=== PATIENT | male | born 1965 | race Caucasian/White ===

== ENCOUNTER 2017-04-21 14:30 | Emergency (ER) | payer SELFPAY ==
[2017-04-21 14:39] VITALS: BP 125/84
[2017-04-21] MEDS ORDERED: HYDROmorphone 1 MG/ML Syringe IVPUSH ONE (15:25)
[2017-04-21] MEDS ORDERED: Sodium Chloride 0.9% 10 ML Syringe FLUSH PRN (15:25)
--- NOTE | 2017-04-21 16:29 | EDM.PDOC ---
ED HPI GENERAL MEDICAL PROBLEM - General Chief Complaint: Lower Extremity Injury/Pain Stated Complaint: LOWER LEFT GROIN PAIN Time Seen by Provider: 04/21/17 15:28 Source of Information: Reports: Patient History Limitations: Reports: No Limitations - History of Present Illness INITIAL COMMENTS - FREE TEXT/NARRATIVE: 51-year-old male presents for evaluation and treatment of left-sided groin pain. Patient reports that he has a left inguinal hernia present for at least the last year. He was supposed to have surgery in [place] but ended up not having this performed. He reports he is now experiencing severe pain from the left inguinal hernia. Worse over the last 4-5 days. Denies any redness or swelling to the area. Reports he is having excruciating pain with reducing the hernia. States that he is difficulty going to the bathroom due to the pain. Left Groin Pain Score (Numeric/FACES): 9 - Related Data Allergies Allergy/AdvReac Type Severity Reaction Status Date / Time No Known Allergies Allergy Verified 04/21/17 14:36 Home Meds: Home Meds Acetaminophen/HYDROcodone [Kersey 325-5 MG] 1 tab PO Q6H PRN #12 tablet 04/21/17 [Rx] Past Medical History Genitourinary History: Reports: Other (See Below) Other Genitourinary History: groin hernia Social & Family History - Tobacco Use Smoking Status *Q: Current Every Day Smoker Years of Tobacco use: 30 Packs/Tins Daily: 0.3 Used Tobacco, but Quit: No Second Hand Smoke Exposure: No - Caffeine Use Caffeine Use: Reports: None - Recreational Drug Use Recreational Drug Use: No Review of Systems - Review of Systems Review Of Systems: See Below GI/Abdominal: Reports: Other (pain with defication due to hernia ) Genitourinary: Reports: Other (left groin pain) Skin: Denies: Erythema ED EXAM, GENERAL - Physical Exam Exam: See Below Exam Limited By: No Limitations General Appearance: Alert, WD/WN, Moderate Distress Respiratory/Chest: No Respiratory Distress (Male) Exam: Hernia (soft, tender left inguinal hernia; no overlying erythema or swelling) Neurological: Alert, Oriented, Normal Cognition Psychiatric: Normal Affect, Normal Mood Skin Exam: Warm, Dry, Normal Color Course - Vital Signs Last Recorded V/S: Last Vital Signs Temp 37.6 C 04/21/17 14:36 Pulse 85 04/21/17 14:36 Resp 20 04/21/17 14:36 BP 125/84 04/21/17 14:36 Pulse Ox 97 04/21/17 14:36 - Orders/Labs/Meds Orders: Active Orders 24 hr Category Date Time Status Peripheral IV Care [RC] . DIRECTED Care 04/21/17 15:25 Active Peripheral IV Insertion Adult [OM.PC] Routine Oth 04/21/17 15:25 Ordered Labs: Laboratory Tests 04/21/17 04/21/17 Range/Units 15:30 15:30 WBC 6.02 (4.23-9.07) K/mm3 RBC 4.68 (4.63-6.08) M/mm3 Hgb 14.5 (13.7-17.5) gm/L Hct 40.8 (40.1-51.0) % MCV 87.2 (79.0-92.2) fl MCH 31.0 (25.7-32.2) pg MCHC 35.5 (32.2-35.5) g/dl RDW Std Deviation 38.5 (35.1-43.9) fL Plt Count 94 L (163-337) K/mm3 MPV 11.5 (9.4-12.3) fl Neut % (Auto) 81.8 H (34.0-67.9) % Lymph % (Auto) 11.3 L (21.8-53.1) % Dane % (Auto) 6.3 (5.3-12.2) % Eos % (Auto) 0 L (0.8-7.0) Baso % (Auto) 0.3 (0.1-1.2) % Neut # (Auto) 4.92 (1.78-5.38) K/mm3 Lymph # (Auto) 0.68 L (1.32-3.57) K/mm3 Dane # (Auto) 0.38 (0.30-0.82) K/mm3 Eos # (Auto) 0.00 L (0.04-0.54) K/mm3 Baso # (Auto) 0.02 (0.01-0.08) K/mm3 Manual Slide Review Abnormal smear Sodium 130 L (136-145) mEq/L Potassium 3.9 (3.5-5.1) mEq/L Chloride 97 L (98-107) mEq/L Carbon Dioxide 24 (21-32) mEq/L Anion Gap 12.9 (5-15) BUN 14 (7-18) mg/dL Creatinine 1.3 (0.7-1.3) mg/dL Est Cr Clr Drug Dosing 73.21 mL/min Estimated GFR (MDRD) 59 (>60) mL/min BUN/Creatinine Ratio 10.8 L (14-18) Glucose 143 H (74-106) mg/dL Calcium 7.9 L (8.5-10.1) mg/dL Total Bilirubin 0.4 (0.2-1.0) mg/dL AST 48 H (15-37) U/L ALT 52 (16-63) U/L Alkaline Phosphatase 55 (46-116) U/L Total Protein 6.3 L (6.4-8.2) g/dl Albumin 2.6 L (3.4-5.0) g/dl Globulin 3.7 gm/dL Albumin/Globulin Ratio 0.7 L (1-2) Meds: Medications Discontinued Medications Generic Name Dose Route Start Last Admin Trade Name Freq PRN Reason Stop Dose Admin Hydromorphone HCl 1 mg 04/21/17 15:25 04/21/17 15:39 Dilaudid IVPUSH 04/21/17 15:26 1 mg ONETIME ONE Administration Sodium Chloride 10 ml 04/21/17 15:25 04/21/17 15:40 Saline Flush FLUSH 10 ml ASDIRECTED PRN Administration Keep Vein Open - Re-Assessments/Exams Free Text/Narrative Re-Assessment/Exam: 04/21/17 16:28 When I evaluated the patient I felt we could reduce his hernia but due to the pain I ordered Dilaudid and labs. Does not appear to be incarcerated. Labs include the following: WBC is 6.02, hgb is 14.5 and plts are 94 sodium is 130, potassium is 3.9 and chloride is 97. Anion gap is 12.9. Glucose is 143 When I return to the room to reduce the hernia the patient had already done this. Pain has improved. I spoke with Dr. Jimenez, surgery superintendent distribution. She is moving from the community shortly and recommended Dr. Mcnally or Dr. Lala. She also recommended s scrotal truss in the interm. Rx given for pain mediation as needed. Discharge instructions as documented. Departure - Departure Time of Disposition: 16:30 Disposition: Home, Self-Care 01 Condition: Good Clinical Impression: Inguinal hernia - Discharge Information Prescriptions: Acetaminophen/HYDROcodone [Kersey 325-5 MG] 1 tab PO Q6H PRN #12 tablet PRN Reason: Pain Instructions: Inguinal Hernia, Adult, [id number] Referrals: PCP,None [Primary Care Provider] - Jamel Mcnally MD [Physician] - Forms: ED Department Discharge Additional Instructions: [place] were given medication in the ER that can affect your ability to drive and operate machinery. No driving or operating machinery within 12 hours of taking prescription narcotic pain medications. [id number] Tylenol or Motrin as a for pain relief. Kersey one tablet every 4-6 hours as needed for severe pain. Do not drive or operative machinery within 12 hours of taking the Kersey. Kersey can be habit-forming, I recommended you use as few as needed to control your pain. No more than 4 g of Tylenol from all sources in 1 day. Prescription given for a scrotal truss. Go to [facility] located just south of the [facility] and [address] Follow up with surgery as soon as you able to. Recommend Dr. Jamel Mcnally or Dr. Lala. Call [phone] Mcnally. Call [phone] Lala. Please return to the ER if your symptoms change or worsen. - My Orders Last 24 Hours: My Active Orders 04/21/17 15:25 Peripheral IV Care [RC] . DIRECTED Peripheral IV Insertion Adult [OM.PC] Routine - Assessment/Plan Last 24 Hours: My Active Orders 04/21/17 15:25 Peripheral IV Care [RC] . DIRECTED Peripheral IV Insertion Adult [OM.PC] Routine
== END 2017-04-21 17:00 | disposition home or self-care (01) ==
LOC: JD.ED 14:30
DX: K40.90 Unilateral inguinal hernia, without obstruction or gangrene, not specified as recurrent (principal); F17.210 Nicotine dependence, cigarettes, uncomplicated
CPT/HCPCS: 36415; 80053; 85025; 96374; 99284; J1170; J7050